=== PATIENT | male | born 1940 | race Caucasian/White ===

== ENCOUNTER 2017-09-05 10:30 | Outpatient (CLI) | payer MEDICARE, OTHER ==
[~2017-09-05] VITALS: Ht 180.3 cm; Wt 75.7 kg
[~2017-09-05 10:30] MED LIST: LEVO175T3 PO; PRAV10TA PO
[2017-09-05] MEDS ORDERED: PRAV40TA2 PO (10:41)
[2017-09-05] MEDS ORDERED: LEVO175T5 PO (10:41)
== END 2017-09-05 10:43 ==
LOC: PREOP 10:30
PROVIDERS: ATTEND Internal Medicine
DX: Z01.818 Encounter for other preprocedural examination (principal); Z12.11 Encounter for screening for malignant neoplasm of colon; Z85.038 Personal history of other malignant neoplasm of large intestine

== ENCOUNTER 2017-09-09 07:22 | Day surgery (SDC) | payer MEDICARE, OTHER ==
--- NOTE | 2017-08-29 08:46 | HISTORY AND PHYSICAL ---
DATE OF SERVICE: COLONOSCOPY HISTORY AND PHYSICAL The patient was seen on 08/25/2017. REFERRING PHYSICIAN: Dr. Galicia. HISTORY OF PRESENT ILLNESS: The patient is a 77-year-old white male referred by Dr. Galicia for surveillance colonoscopy. He was diagnosed with colon cancer in 2007. I last performed colonoscopy on him in August 2015. He had an tubular adenoma removed from his mid ascending colon and is here for surveillance colonoscopy. He denies abdominal pain and has noted no red blood per rectum or melena and denies bowel habit change. PAST MEDICAL HISTORY: Significant for hyperlipidemia and hypothyroidism for which he is on replacement. MEDICATIONS ON ADMISSION: Include L-thyroxine and pravastatin, unknown dosages. SOCIAL HISTORY: He is retired with occasional social alcohol intake and no past smoking. FAMILY HISTORY: He is not aware of any known family history for colon cancer. PHYSICAL EXAMINATION: GENERAL: Reveals a well appearing white male, in no acute distress. VITAL SIGNS: Blood pressure 100/60, which is his baseline level of blood pressure, heart rate 76 and regular. HEENT: Unremarkable. He has a Mallampati class 3 oropharyngeal configuration. Pharynx is clear, no erythema or exudate are noted. NECK: Revealed no JVD, adenopathy or bruits. CHEST: Clear. CARDIOVASCULAR: Reveals regular rate and rhythm without murmur, S3 or S4. ABDOMEN: Soft, supple without mass, organomegaly or tenderness. No bruits are noted. No evidence for abdominal aortic aneurysm was noted to palpation. EXTREMITIES: Reveal no cyanosis, clubbing or edema. ASSESSMENT: The patient is set up for screening colonoscopy. Prep instructions with split dose Colyte were given and questions were answered. I thank you for the referral of this pleasant gentleman. Job ID: [id number] DocumentID: [id number] Dictated Date: 08/25/2017 17:33:39 Slp Teacher Date: 08/25/2017 18:02:02 Dictated By: JERMAINE APONTE MD [facility]
[~2017-09-09] VITALS: Ht 180.3 cm; Wt 75.7 kg
[~2017-09-09 07:22] MED LIST changes: +LEVO175T5 PO; +PRAV40TA2 PO
[2017-09-09] MEDS ORDERED: D5 LR IV SOLUTION 1,000 ML IV ONE (07:23)
[2017-09-09] MEDS ORDERED: D5 LR IV SOLUTION 1,000 ML IV STA (07:31)
[2017-09-09] MEDS ORDERED: fentaNYL INJECTION 100 MCG/2 ML AMP ONE (07:43)
[2017-09-09] MEDS ORDERED: LIDOCAINE JELLY 2% (XYLOCAINE) 5 ML TUBE ONE (07:43)
[2017-09-09] MEDS ORDERED: MIDAZOLAM 2 MG/2 ML (VERSED) VIAL ONE (07:43)
[2017-09-09] MEDS ORDERED: LIDOCAINE JELLY 2% (XYLOCAINE) 5 ML TUBE MM PRN (07:45)
[2017-09-09] MEDS ORDERED: MIDAZOLAM 2 MG/2 ML (VERSED) VIAL IVP PRN (07:45)
[2017-09-09] MEDS: fentaNYL INJECTION 100 MCG/2 ML AMP IVP PRN ×2 (07:58→08:10)
[2017-09-09 08:09] VITALS: BP 143/84
--- NOTE | 2017-09-09 08:38 | Pre-Op Note & Conscious Sedat ---
Pre-Operative Progress Note H&P Reviewed The H&P was reviewed, patient examined and no changes noted. Date H&P Reviewed: Sep 09, 2017 Time H&P Reviewed: 07:45 Conscious Sedation Pre-Proced ASA Class: 2 Airway Mallampati Classification: ([place] appropriate class) I. II. III, IV Lungs Heart ASA score ASA 1: a normal healthy patient ASA 2: a patient with a mild systemic disease (mid diabetes, controlled hypertension, obesity ASA 3: a patient with a severe systemic disease that limits activity (angina , COPD, prior Myocardial infarction) ASA 4: a patient with an incapacitating disease that is a constant threat to life (CHF, renal failure) ASA 5: a moribund patient not expected to survive 24 hrs. (ruptured aneurysm) ASA 6: a declared brain patient whose organs are being harvested. For emergent operations, add the letter E after the classification Grade 3 Sedation Plan: Analgesia, Amnesia, Plan communicated to team members, Discussed options with patient/fam, Discussed risks with patient/fam Note The patient is an appropriate candidate to undergo the planned procedure, sedation, and anesthesia. The patient immediately re-assessed prior to indication. JERMAINE APONTE MD Sep 09, 2017 08:38
[2017-09-09 08:40] VITALS: BP 124/75
[2017-09-09 09:10] VITALS: BP 122/79
[2017-09-09 11:39] VITALS: BP 122/79
--- NOTE | 2017-09-09 15:31 | OPERATIVE REPORT ---
DATE OF SERVICE: COLONOSCOPY SUMMARY INDICATION FOR THE PROCEDURE: Surveillance colonoscopy, past history of colon cancer. The patient was placed in left lateral decubitus position. Prior to undergoing colonoscopy, digital rectal evaluation was performed. Anal sphincter tone was normal. The perianal reflexes intact. There is a redundant perianal fall without evidence for external hemorrhoid. One small grade I internal hemorrhoid complex was noted. The prostate is moderately enlarged, anodular and nontender to digital inspection. No other abnormalities on additional inspection of anal canal or distal rectal vault. The colonoscope was then inserted into the rectum under direct visualization advanced to the cecum. The cecum was identified by identification of the ileocecal valve, cecal strap and appendiceal orifice. Photographic documentation was obtained. A careful inspection was made as the colonoscope was withdrawn. FINDINGS: One grade I internal hemorrhoid complex was noted with no evidence for thrombosis. The rectum was otherwise unremarkable. Present in the rectosigmoid junction was an unremarkable appearing anastomotic margin with no evidence to suggest cancer recurrence. The remainder of the sigmoid colon was unremarkable. No evidence for diverticular disease was noted. The descending colon, splenic flexure, transverse colon and hepatic flexure were unremarkable. Present in the proximal ascending colon was a diminutive 2 mm sessile polyp. It was photographed and biopsied and ablated with no subsequent blood loss. Remainder of the ascending colon and cecum were unremarkable. ASSESSMENT: 1. One diminutive polyp was removed from the proximal ascending colon. No other evidence for neoplasia was identified. As long as there are no surprises on histopathology report taking into consideration, this patient's extreme anxiety about recurrent cancer despite reassurance will advocate another 2-year surveillance interval. 2. One small grade I internal hemorrhoid complex was noted. 3. Digital evaluation is compatible with moderate benign prostatic hypertrophy. Thank you for the referral of this pleasant gentleman. Job ID: [id number] DocumentID: [id number] Dictated Date: 09/09/2017 08:46:22 Apron Operator Date: 09/09/2017 15:31:08 Dictated By: JERMAINE APONTE MD
== END 2017-09-09 09:20 | disposition home or self-care (01) ==
LOC: ENDO 07:22
PROVIDERS: ATTEND Internal Medicine
DX: Z12.11 Encounter for screening for malignant neoplasm of colon (principal); D12.2 Benign neoplasm of ascending colon; K64.0 First degree hemorrhoids; Z85.038 Personal history of other malignant neoplasm of large intestine; E03.9 Hypothyroidism, unspecified; E78.5 Hyperlipidemia, unspecified; Z79.899 Other long term (current) drug therapy

== ENCOUNTER 2019-09-24 10:14 | Outpatient (CLI) | payer MEDICARE, OTHER ==
[~2019-09-24] VITALS: Ht 180.3 cm; Wt 82.7 kg
== END 2019-09-24 16:18 ==
LOC: PREOP 10:14
PROVIDERS: ATTEND Internal Medicine
DX: Z01.818 Encounter for other preprocedural examination (principal); Z11.59 Encounter for screening for other viral diseases
CPT/HCPCS: 87635